=== PATIENT | male | born 1965 | race Caucasian/White ===

== ENCOUNTER 2017-05-24 09:12 | Emergency (ER) | payer OTHER ==
[2017-05-24] MEDS ORDERED: Adacel (T-DAP) 0.5 ML VIAL ONE (09:26)
[2017-05-24] MEDS ORDERED: Lidocaine 1% 20 ML MDV ONE (09:34)
[2017-05-24] MEDS ORDERED: cefTRIAXone\\ROCEPHIN 1 GM VIAL ONE (09:34)
== END 2017-05-24 09:55 | disposition home or self-care (01) ==
LOC: NAV ERS 09:12
DX: L03.115 Cellulitis of right lower limb (principal); I11.9 Hypertensive heart disease without heart failure; I42.9 Cardiomyopathy, unspecified; F17.210 Nicotine dependence, cigarettes, uncomplicated; Z79.899 Other long term (current) drug therapy
CPT/HCPCS: 87070; 87077; 87186; 87205; 90471; 90715; 96372; J0696; J2001